=== PATIENT | male | born 1980 | race Caucasian/White ===

== ENCOUNTER 2017-09-22 18:00 | Emergency (ER) | payer OTHER ==
[~2017-09-22] VITALS: Ht 177.8 cm; Wt 74.8 kg
[2017-09-22 18:08] VITALS: BP 143/78
== END 2017-09-22 18:28 | disposition home or self-care (01) ==
LOC: ER 18:02
DX: K08.89 Other specified disorders of teeth and supporting structures (principal)
CPT/HCPCS: 99283; A4606; Z7610